=== PATIENT | male | born 1990 | race Asian ===

== ENCOUNTER 2024-12-10 19:27 | Inpatient (IN) | payer SELFPAY ==
[2024-12-10] MEDS ORDERED: diphenhydrAMINE 50 MG/ML VIAL ONE (20:41)
[2024-12-10 21:15] LABS: #Basophils 0.05 10x3/uL (0.0-0.2); #Eosinophils 0.06 10x3/uL (0.0-0.7); #Monocytes 0.69 10x3/uL (0.11-0.59); #Neutrophils 5.38 10x3/uL (1.40-6.50); %Basophils 0.5 % (0.0-1.0); %Eosinophils 0.6 % (0.0-10.0); %Lymphocytes 35.6 % (21.0-51.0); %Monocytes 7.2 % (0.0-10.0); %Neutrophils 55.8 % (42.0-75.0); Hematocrit 46.8 % (42.0-52.0); Hemoglobin 15.0 g/dL (14.0-18.0); Mean Corpuscular Hemoglobin 30.9 pg (27.0-31.0); Mean Corpuscular Volume 96.5 fL (78.0-98.0); Platelet Count 170 10x3/uL (130-400); Red Blood Cell (RBC) Count 4.85 mill/uL (4.70-6.10); White Blood Cell (WBC) Count 9.64 10x3/uL (4.8-10.8)
[2024-12-10 21:43] LABS: Magnesium 2.3 mg/dL (1.6-2.6)
[2024-12-10 21:44] LABS: ALT (SGPT) 17 U/L (Less than 45); AST (SGOT) 23 U/L (11-34); Acetaminophen Less than 10 mcg/mL (Less than 10); Albumin 4.9 g/dL (3.1-4.5); Alkaline Phosphatase 60 U/L (40-110); Anion Gap 30 mmol/L (10-20); BUN (Urea Nitrogen) 18 mg/dL (8.9-20.6); Bilirubin, Total 1.3 mg/dL (0.3-1.2); Calc. Creatinine Clearance 0 mL/min (70-130); Calcium 9.1 mg/dL (7.8-10.44); Carbon Dioxide 10 mmol/L (22-29); Chloride 104 mmol/L (98-107); Globulin 3.1 g/dL (2.4-3.5); Glucose 153 mg/dL (70-105); Potassium 3.4 mmol/L (3.5-5.1); Salicylate Less than 8.0 mg/dL (Less than 8.0); Sodium 141 mmol/L (136-145)
[2024-12-10 22:17] LABS: Free T4 (Free Thyroxine) 0.91 ng/dL (0.70-1.48); T4 5.89 ug/dL (4.87-11.72)
[2024-12-10 23:30] LABS: Actual Bicarbonate (HCO3v) 22.9 mEq/L (22-28); Base Excess -3.1 mEq/L (-2.0 to +3.0); Calcium, Ionized (venous) 1.15 mmol/L (1.16-1.32); Chloride (VBG) 103 mmol/L (98-106); Hematocrit-VBG 44 % (42.0-52.0); Hemoglobin (Hb) 14.9 g/dL (13.2-17.3); Potassium (VBG) 3.97 mmol/L (3.70-5.30); Sodium 140 mmol/L (133-146)
[2024-12-11] MEDS ORDERED: Ondansetron PF 4 MG/2 ML Vial IVP PRN (01:26)
[2024-12-11] MEDS ORDERED: Electrolyte Replacement Protocol 1 EACH FS PRN (01:30)
[2024-12-11 01:57] LABS: Troponin I 0.021 ng/mL (< 0.028)
[2024-12-11] MEDS: Famotidine/PF 20 mg/2ml Vial SLOW IVP SCH (07:45)
[2024-12-11 11:17] LABS: Hematocrit 44.4 % (42.0-52.0); Hemoglobin 14.6 g/dL (14.0-18.0); Mean Corpuscular Hemoglobin 30.8 pg (27.0-31.0); Mean Corpuscular Volume 93.7 fL (78.0-98.0); Platelet Count 128 10x3/uL (130-400); Red Blood Cell (RBC) Count 4.74 mill/uL (4.70-6.10); White Blood Cell (WBC) Count 7.11 10x3/uL (4.8-10.8)
[2024-12-11 11:27] VITALS: BP 125/80
[2024-12-11 11:42] LABS: #Basophils 0.03 10x3/uL (0.0-0.2); #Eosinophils 0.05 10x3/uL (0.0-0.7); #Monocytes 0.42 10x3/uL (0.11-0.59); #Neutrophils 5.31 10x3/uL (1.40-6.50); %Basophils 0.4 % (0.0-1.0); %Eosinophils 0.7 % (0.0-10.0); %Lymphocytes 18.0 % (21.0-51.0); %Monocytes 5.9 % (0.0-10.0); %Neutrophils 74.7 % (42.0-75.0); Anisocytosis MODERATE=16-30 cells HPF (0-5); Macrocytosis SLIGHT = 6-15 cells HPF (0-5); Ovalocytes SLIGHT = 2-5 cells HPF (0-1); Platelet Adequacy Comment Platelets Normal
[2024-12-11 11:43] LABS: ALT (SGPT) 19 U/L (Less than 45); AST (SGOT) 48 U/L (11-34); Albumin 4.3 g/dL (3.1-4.5); Alkaline Phosphatase 56 U/L (40-110); Anion Gap 14 mmol/L (10-20); BUN (Urea Nitrogen) 12 mg/dL (8.9-20.6); Bilirubin, Total 2.2 mg/dL (0.3-1.2); Calc. Creatinine Clearance 0 mL/min (70-130); Calcium 8.7 mg/dL (7.8-10.44); Carbon Dioxide 23 mmol/L (22-29); Chloride 109 mmol/L (98-107); Globulin 2.5 g/dL (2.4-3.5); Glucose 93 mg/dL (70-105); Potassium 3.8 mmol/L (3.5-5.1); Sodium 142 mmol/L (136-145)
[2024-12-11 11:53] VITALS: BMI 21.7
== END 2024-12-11 16:33 | disposition home or self-care (01) | DRG 641 ==
LOC: EEVIPCON 19:27 → ERS 19:27 → CCU 12-11 00:12 → T4-B 12-11 11:23
PROVIDERS: ADMIT Internal Medicine; ATTEND Internal Medicine
DX: E87.20 Acidosis, unspecified (principal); F30.9 Manic episode, unspecified; F23 Brief psychotic disorder; F22 Delusional disorders; E87.6 Hypokalemia; E80.6 Other disorders of bilirubin metabolism
CPT/HCPCS: 36415; 70450; 80053; 80307; 82550; 82805; 83605; 83735; 84425; 84436; 84439; 84443; 84481; 84482; 84484; 85025; 93005; J1200; J1630; J2250